=== PATIENT | male | born 1985 | race Two or more races ===

== ENCOUNTER 2018-07-30 20:52 | Emergency (ER) | payer SELFPAY ==
[~2018-07-30] VITALS: Ht 175.3 cm; Wt 86.2 kg
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
--- NOTE | 2018-07-30 21:33 | NUR ---
PT TAKEN TO RADIOLOGY.
[2018-07-30] MEDS ORDERED: IBUPROFEN 400 MG TABLET ONE (22:27)
[2018-07-30] MEDS ORDERED: IBUPROFEN 400 MG TABLET PO ONE (22:30)
[2018-07-30 22:58] VITALS: BP 138/81
== END 2018-07-30 22:59 | disposition home or self-care (01) ==
LOC: ER 20:55
DX: S00.03XA Contusion of scalp, initial encounter (principal); F07.81 Postconcussional syndrome; Y04.0XXA Assault by unarmed brawl or fight, initial encounter; Y93.89 Activity, other specified; Y92.89 Other specified places as the place of occurrence of the external cause; Y99.8 Other external cause status
CPT/HCPCS: 70450-TC; 72125-TC